=== PATIENT | female | born 1975 | race Caucasian/White ===

== ENCOUNTER → 2017-03-16 | Outpatient (CLI) | payer BC ==
--- NOTE | 2017-03-16 10:24 | DIAGNOSTIC IMAGING REPORT ---
THYROID ULTRASOUND HISTORY: Thyroid nodules E04.1 NODULES COMPARISON: 03/18/2016 outside institution FINDINGS: Right lobe: Maximum dimension 5.1 cm. Subtle multinodular appearance. Maximum cystic dimension 9 mm. This is unchanged from the prior study. Left lobe: Maximum dimension 4.6 cm. Subtle micronodular appearance unchanged Isthmus: No nodules. IMPRESSION: Multicystic multinodular thyroid essentially unchanged from the prior exam. Electronically signed by: Jonh Gardner M.D. 03/16/2017 10:22 AM Dictated Date/Time: 03/16/2017 10:19 AM
== END | disposition home or self-care (01) ==
LOC: C.ULTR 09:23
PROVIDERS: ATTEND Physician Assistant
DX: E04.1 Nontoxic single thyroid nodule (principal)